=== PATIENT | male | born 1965 | race Caucasian/White ===

== ENCOUNTER → 2016-12-02 | Day surgery (SDC) | payer SELFPAY ==
[~2016-12-02] VITALS: Ht 188 cm; Wt 104.1 kg
[~2016-12-02] MED LIST: ACTOS 15 MG15 MG PO; BACTRIM DS1 TAB PO; CIPRO500 MG PO; FLOMAX0.4 MG PO; GLUCOPHAGE1000 MG PO; LISINOPRIL-HCT1 EAC1 PO; NORVASC5 MG PO; PYRIDIUM200 MG PO; THERAGRAN-M1 TAB PO; TYLENOL EXTRA500 MG PO; TYLENOL WITH C1 EACH PO; VITAMIN E400 UNI2 PO; ZOCOR40 MG PO
--- NOTE | ~2016-12-02 | OR ---
PATIENT'S NAME: PHYLICIA GLYNN [facility] AGE: 51 Y [address] ROOM: [place] [id number] LOCATION: [facility] [place] ADMIT DATE: 12/02/2016 OR/Procedure Report DISCHARGE DATE: FAMILY PHYSICIAN: LILIBETH CHE MD ATTENDING PHYSICIAN: Sravanthi Ferrara SURGEON: Sravanthi Ferrara MD TRAINING GENERALIST: DATE OF PROCEDURE: 12/02/2016 PREOPERATIVE DIAGNOSIS: Bulbourethral stricture. POSTOPERATIVE DIAGNOSIS: Bulbourethral stricture. PROCEDURES PERFORMED: Cystoscopy, urethral dilatation, and DVIU. ANESTHESIA: General. COMPLICATIONS: None. INDICATION FOR PROCEDURE: The patient is a 51-year-old male with urinary retention. Ultrasound volume was 900 mL secondary to urethral stricture. The patient was seen in a clinic in [facility] secondary to acute pain and reported he was unable to void for some time. Again, ultrasound revealed 900 mL in the bladder. Staff was unable to pass Trevino catheter. The patient was seen in Urology Clinic where I attempted to pass a catheter unsuccessfully. Flexible cystoscopy was performed, which revealed a tight bulbourethral stricture. DETAILS OF PROCEDURE: After informed consent obtained, the patient was taken to the operating room. A general anesthetic was applied. He was placed in dorsal lithotomy position. The groin area was prepped and draped in normal sterile fashion. Cystoscope was introduced into the urethra to the area of his stricture. A guidewire was then placed through the stricture into the bladder and confirmed by fluoroscopy. Next, I passed the filiform through the stricture into the bladder. I dilated with a 10-[place] catheter. I then attempted to dilate with a 12-[place] catheter unsuccessfully. I removed the filiform and follower. I then introduced the urethrotome and cut the stricture at the 12 o'clock position, opening up enough to allow the urethrotome passed into the bladder. The bladder was quite dilated. The urethrotome was then removed and I passed a 20-[place] tip catheter over the guidewire into the bladder. The balloon was inflated and the bladder drained. The patient tolerated the procedure well and was transferred to the recovery room in good condition. PATIENT'S NAME: PHYLICIA GLYNN [facility] AGE: 51 Y [address] ROOM: [place] [id number] LOCATION: [facility] [place] ADMIT DATE: 12/02/2016 OR/Procedure Report DISCHARGE DATE: FAMILY PHYSICIAN: LILIBETH CHE MD ATTENDING PHYSICIAN: Sravanthi Ferrara MD ROBERTO CARLOS MARS/david /[id number] CC: Rufino Paredes NP d: 12/03/16 0017 t: 12/24/16 1514, OPERATIVE SUMMARY
[2016-12-02 16:18] LABS: BASOPHIL # 0.1 K/uL (0.0-0.2); BASOPHIL % 0.5 %; EOSINOPHIL % 0.4 %; HEMATOCRIT 44.4 % (37.0-53.0); HEMOGLOBIN 15.2 g/dL (12.0-17.0); IMMATURE GRANULOCYTE % 0.3 %; LYMPHOCYTE # 1.5 K/uL (0.8-4.0); LYMPHOCYTE % 14.6 %; MCH 29.6 pg (27.0-34.0); MCHC 34.2 gm/dL (32.0-36.5); MCV 86.4 fl (83.0-98.0); MONOCYTE # 0.6 K/uL (0.0-1.0); MONOCYTE % 5.4 %; MPV 10.5 fl (9.4-12.4); NEUTROPHIL # (ANC) 8.2 K/uL (1.4-9.0); NEUTROPHIL % 78.8 %; NRBC % 0 /100WBC (0-0.00); PLATELET COUNT 256 K/uL (150-450); RBC 5.14 M/uL (4.00-6.00); RDW-CV 12.2 % (11.9-14.6); WBC 10.4 K/uL (4.0-11.0)
[2016-12-02 16:38] LABS: ALBUMIN 4.6 gm/dL (3.5-5.0); ALK PHOS 73 IU/L (33-138); ALT 25 IU/L (12-78); ANION GAP 12.3 (10.0-19.0); AST 20 IU/L (10-40); BLOOD UREA NITROGEN 12 mg/dL (6-24); CHLORIDE 104 mMol/L (96-110); CO2 27 mMol/L (22-32); ESTIMATED GFR (MDRD EQUATION) > 60; POTASSIUM 3.3 mMol/L (3.7-5.1); SODIUM 140 mMol/L (135-145); TOTAL BILIRUBIN 0.4 mg/dL (0.0-1.5); TOTAL PROTEIN 8.1 g/dL (6.0-8.4)
== END | disposition disaster alternative care site (69) ==
LOC: GSDC 15:31 → GPOC 12-04 16:00
PROVIDERS: Urology
PROC: 0T7D8ZZ Dilation of Urethra, Via Natural or Artificial Opening Endoscopic (ICD-10-PCS; principal; 2016-12-02)
DX: N35.9 Urethral stricture, unspecified (principal); R33.9 Retention of urine, unspecified; I10 Essential (primary) hypertension; E11.9 Type 2 diabetes mellitus without complications; E78.00 Pure hypercholesterolemia, unspecified
CPT/HCPCS: J1956; J3010; J7030